=== PATIENT | male | born 1945 | race Caucasian/White ===

== ENCOUNTER 2019-01-05 22:02 | Inpatient (IN) | payer MEDICARE, OTHER ==
[2019-01-05] MEDS ORDERED: ACETAMINOPHEN TAB 500 MG TAB PO STA (22:20)
[2019-01-05] MEDS ORDERED: SODIUM CHLORIDE 0.9% 1,000 ML IV STA ×2 (22:20)
[2019-01-05] MEDS ORDERED: SODIUM CHLORIDE 0.9% 500 ML 500 ML IV STA (22:20)
[2019-01-05] MEDS ORDERED: IBUPROFEN 600 MG TAB PO STA (22:20)
--- NOTE | 2019-01-05 22:31 | ED ---
Weakness HPI - General Chief complaint: Weakness Stated complaint: Weakness,fever Time Seen by Provider: 01/05/19 22:10 Source: patient, family, EMS, RN notes reviewed, old records reviewed Mode of arrival: EMS Limitations: no limitations - History of Present Illness Initial comments: This is a 73-year-old male the ER for evaluation patient resents today for evaluation of severe weakness and fever. Significant left upper extremity pain. Weakness. Patient is diagnosis of CVA, scheduled for bone marrow biopsy, has history of leukemia. Patient's severely weak unable to give history history obtained from family at bedside and EMS patient did vomit upon EMS arrival, has not been feeling as well himself all day he did receive a pneumonia vaccine in his left shoulder earlier in the day MD Complaint: generalized weakness -: hour(s) Location: generalized, LUE Severity scale (1-10): 7 Consistency: constant Improves with: none Context: new medication, recent illness Associated Symptoms: fever/chills, loss of appetite, nausea/vomiting, shortness of breath - Related Data Home Medications Medication Instructions Recorded Confirmed Albuterol Inhaler [Ventolin Hfa 2 puff INHALATION RT-Q6H PRN 08/04/15 01/05/19 Inhaler] Albuterol Nebulized [Ventolin 2.5 mg INHALATION RT-TID 08/04/15 01/05/19 Nebulized] LORazepam [Lorazepam] 1 mg PO TID 09/09/15 01/05/19 Citalopram Hydrobromide 30 mg PO DAILY 08/05/17 01/05/19 [Citalopram HBr] Acyclovir [Zovirax] 800 mg PO BID 01/05/19 01/05/19 Atorvastatin [Lipitor] 40 mg PO DAILY 01/05/19 01/05/19 Gabapentin [Neurontin] 400 mg PO TID 01/05/19 01/05/19 Hydrocodone/Acetaminophen [[place] 1 tab PO TID PRN 01/05/19 01/05/19 7.5-325] Mg Plus Protein Tab 1 tab PO DAILY 01/05/19 01/05/19 Montelukast [Singulair] 10 mg PO HS 01/05/19 01/05/19 Ondansetron HCl [Zofran] 4 mg PO BID PRN 01/05/19 01/05/19 Tacrolimus [Prograf] 0.5 mg PO BID 01/05/19 01/05/19 Venlafaxine HCl ER [Effexor Xr] 75 mg PO DAILY 01/05/19 01/05/19 Allergies Allergy/AdvReac Type Severity Reaction Status Date / Time No Known Allergies Allergy Verified 01/05/19 22:39 Review of Systems ROS Statement: Those systems with pertinent positive or pertinent negative responses have been documented in the HPI. ROS Other: All systems not noted in ROS Statement are negative. Past Medical History Past Medical History: Cancer, COPD, Hyperlipidemia, Hypertension, Renal Disease Additional Past Medical History / Comment(s): sciatica, CLL-SLL, AML-bone marrow transplant 2017,. Skin cancer, stage 3 kidney disease, low platelets, RLS, aortic aneurysm-drTopher monitoring History of Any Multi-Drug Resistant Organisms: None Reported Past Surgical History: No Surgical Hx Reported Additional Past Surgical History / Comment(s): skin grafts to remove skin cancer-part of left ear gone, colonoscopy, bone marrow biopsies Past Anesthesia/Blood Transfusion Reactions: No Reported Reaction Past Psychological History: Depression Smoking Status: Former smoker - Past Family History Mother Family Medical History: Diabetes Mellitus Father Family Medical History: Cancer General Exam - General Exam Comments Initial Comments: Significant swelling of left upper extremity or patient received vaccine earlier today no erythema, whole body is warm Limitations: no limitations General appearance: alert, in no apparent distress Head exam: Present: atraumatic, normocephalic, normal inspection Eye exam: Present: normal appearance, PERRL, EOMI. Absent: scleral icterus, conjunctival injection, periorbital swelling ENT exam: Present: normal exam, mucous membranes moist Neck exam: Present: normal inspection. Absent: tenderness, meningismus, lymphadenopathy Respiratory exam: Present: normal lung sounds bilaterally. Absent: respiratory distress, wheezes, rales, rhonchi, stridor Cardiovascular Exam: Present: regular rate, normal rhythm, normal heart sounds. Absent: systolic murmur, diastolic murmur, rubs, gallop, clicks GI/Abdominal exam: Present: soft, normal bowel sounds. Absent: distended, tenderness, guarding, rebound, rigid Extremities exam: Present: normal inspection, full ROM, normal capillary refill. Absent: tenderness, pedal edema, joint swelling, calf tenderness Back exam: Present: normal inspection Neurological exam: Present: alert, oriented X3, CN II-XII intact Psychiatric exam: Present: normal affect, normal mood Skin exam: Present: warm, dry, intact, normal color. Absent: rash Course Vital Signs 01/05/19 01/05/19 01/06/19 22:09 23:49 00:00 Temperature 100.2 F H Pulse Rate 89 86 88 Respiratory 20 Rate Blood Pressure 137/84 O2 Sat by Pulse 92 L Oximetry 01/06/19 01/06/19 00:01 00:11 Temperature Pulse Rate 88 89 Respiratory Rate Blood Pressure O2 Sat by Pulse Oximetry - Reevaluation(s) Reevaluation #1: 01/05/19 22:31 Record is reviewed Reevaluation #2: 01/06/19 00:18 Patient is feeling much improved after IV hydration and fever control here in t ER EKG Findings - EKG Comments: EKG Findings:: EKG shows sinus rhythm rate of 86, ME 210, QRS 80, QTC 428 Medical Decision Making - Medical Decision Making 73 male the ER for evaluation. Patient does say for evaluation of fever possibly secondary to recent pneumonia vaccination. No abscess noted in left upper extremity chest x-rays negative, patient will be admitted for broad- spectrum antibiotics secondary to leukopenia - Lab Data Result diagrams: 01/05/19 22:50 01/05/19 22:50 Lab Results 01/05/19 01/05/19 01/05/19 Range/Units 22:50 22:50 22:50 WBC 2.1 L (3.8-10.6) k/uL RBC 3.43 L (4.30-5.90) m/uL Hgb 12.6 L (13.0-17.5) gm/dL Hct 36.3 L (39.0-53.0) % MCV 106.1 H (80.0-100.0) fL MCH 36.7 H (25.0-35.0) pg MCHC 34.6 (31.0-37.0) g/dL RDW 16.2 H (11.5-15.5) % Anisocytosis Slight Macrocytosis Moderate PT (9.0-12.0) sec INR (<1.2) APTT (22.0-30.0) sec Sodium 138 (137-145) mmol/L Potassium 4.4 (3.5-5.1) mmol/L Chloride 107 (98-107) mmol/L Carbon Dioxide 24 (22-30) mmol/L Anion Gap 7 mmol/L BUN 21 H (9-20) mg/dL Creatinine 1.00 (0.66-1.25) mg/dL Est GFR (CKD-EPI)AfAm 85 (>60 ml/min/1.73 sqM) Est GFR (CKD-EPI)NonAf 74 (>60 ml/min/1.73 sqM) Glucose 121 H (74-99) mg/dL Plasma Lactic Acid Kaden 1.0 (0.7-2.0) mmol/L Calcium 7.9 L (8.4-10.2) mg/dL Phosphorus 2.3 L (2.5-4.5) mg/dL Magnesium 1.6 (1.6-2.3) mg/dL Total Bilirubin 1.6 H (0.2-1.3) mg/dL AST 42 (17-59) U/L ALT 25 (21-72) U/L Alkaline Phosphatase 112 (38-126) U/L Creatine Kinase 45 L (55-170) U/L Troponin I (0.000-0.034) ng/mL NT-Pro-B Natriuret Pep pg/mL Total Protein 8.5 H (6.3-8.2) g/dL Albumin 3.9 (3.5-5.0) g/dL 01/05/19 01/05/19 01/05/19 Range/Units 22:50 22:50 22:50 WBC (3.8-10.6) k/uL RBC (4.30-5.90) m/uL Hgb (13.0-17.5) gm/dL Hct (39.0-53.0) % MCV (80.0-100.0) fL MCH (25.0-35.0) pg MCHC (31.0-37.0) g/dL RDW (11.5-15.5) % Anisocytosis Macrocytosis PT 11.7 (9.0-12.0) sec INR 1.1 (<1.2) APTT 29.5 (22.0-30.0) sec Sodium (137-145) mmol/L Potassium (3.5-5.1) mmol/L Chloride (98-107) mmol/L Carbon Dioxide (22-30) mmol/L Anion Gap mmol/L BUN (9-20) mg/dL Creatinine (0.66-1.25) mg/dL Est GFR (CKD-EPI)AfAm (>60 ml/min/1.73 sqM) Est GFR (CKD-EPI)NonAf (>60 ml/min/1.73 sqM) Glucose (74-99) mg/dL Plasma Lactic Acid Kaden (0.7-2.0) mmol/L Calcium (8.4-10.2) mg/dL Phosphorus (2.5-4.5) mg/dL Magnesium (1.6-2.3) mg/dL Total Bilirubin (0.2-1.3) mg/dL AST (17-59) U/L ALT (21-72) U/L Alkaline Phosphatase (38-126) U/L Creatine Kinase (55-170) U/L Troponin I <0.012 (0.000-0.034) ng/mL NT-Pro-B Natriuret Pep 564 pg/mL Total Protein (6.3-8.2) g/dL Albumin (3.5-5.0) g/dL - Radiology Data Radiology results: report reviewed (Chest x-ray and ultrasound of left arm is negative for significant acute disease, no abscess noted on ultrasound), image reviewed Disposition Clinical Impression: Acute renal failure, Chronic lymphocytic leukemia, Dehydration, Fever Disposition: ADMITTED IP TO THIS HOSP Condition: Good Is patient prescribed a controlled substance at d/c from ED?: No Referrals: Wilian Sequeira MD [Primary Care Provider] - 1-2 days
[2019-01-05] MEDS ORDERED: IPRATROPIUM-ALBUTEROL 3 ML NEB INHALATION STA (22:51)
[2019-01-05 23:03] LABS: INR 1.1 (<1.2); Partial Thromboplastin Time 29.5 sec (22.0-30.0); Prothrombin Time 11.7 sec (9.0-12.0)
[2019-01-05 23:08] LABS: Anisocytosis Slight; HCT 36.3 % (39.0-53.0); HGB 12.6 gm/dL (13.0-17.5); MCH 36.7 pg (25.0-35.0); MCHC 34.6 g/dL (31.0-37.0); MCV 106.1 fL (80.0-100.0); Macrocytosis Moderate; Mean Platelet Volume 7.7; RBC 3.43 m/uL (4.30-5.90); RDW 16.2 % (11.5-15.5); WBC 2.1 k/uL (3.8-10.6)
[2019-01-05 23:09] LABS: Albumin 3.9 g/dL (3.5-5.0); Calcium 7.9 mg/dL (8.4-10.2); Magnesium 1.6 mg/dL (1.6-2.3); Phosphorus 2.3 mg/dL (2.5-4.5); Potassium 4.4 mmol/L (3.5-5.1); Total Bilirubin 1.6 mg/dL (0.2-1.3); Total Protein 8.5 g/dL (6.3-8.2)
--- NOTE | 2019-01-05 23:23 | XR ---
EXAMINATION TYPE: XR chest 2V DATE OF EXAM: 01/05/2019 COMPARISON: 09/08/1915 HISTORY: Fever and weakness TECHNIQUE: Frontal and lateral views of the chest are obtained. FINDINGS: Heart is normal. Lungs are clear of consolidation. Thoracic aorta is atheromatous. There i s no pleural effusion. Bony thorax is intact. IMPRESSION: No active cardiopulmonary disease. No change. There is probably some COPD.
--- NOTE | 2019-01-05 23:29 | US ---
EXAMINATION TYPE: US extremity nonvasc mass LT DATE OF EXAM: 01/05/2019 COMPARISON: NONE CLINICAL HISTORY: abscess. Abscess per order. Pain, swelling, redness x couple hours at area where pa tient received vaccination upper left arm. Scanned area of concern upper left arm where patient received vaccination today. Limited due to edema . ?Possible indistinct hyperechoic/mixed area seen vs normal tissue? IMPRESSION: There is no evidence of hematoma or abscess. A phlegmon is possible. Margins are indisti nct.
[2019-01-06] MEDS ORDERED: PNEUMONIA PROTOCOL UTILIZED 1 EACH MISC PO PRN (00:18)
[2019-01-06] MEDS ORDERED: PIPERACILLIN-TAZOBACTAM 3.375 GM in SODIUM CHLORIDE 0.9% 100 ML IVPB STA (00:18)
[2019-01-06 00:27] LABS: Band Neutrophils % 9 %; Eosinophils # (M) 0.04 k/uL (0-0.7); Lymphocytes # (M) 1.26 k/uL (1.0-4.8); Monocytes # (M) 0.04 k/uL (0-1.0); Neutrophils % (M) 27 %; Nucleated Red Blood Cells 0 /100 WBC (0-0); Total Cells Counted 100
[2019-01-06 00:28] LABS: Polychromasia Present
[2019-01-06 00:30] LABS: Platelet Count 43 k/uL (150-450)
[2019-01-06 00:56] LABS: Appearance,Urine Clear (Clear); Bacteria,Urine Rare /hpf; Bilirubin,Urine Negative (Negative); Blood,Urine Moderate (Negative); Color,Urine Yellow; Glucose,Urine (UA) Negative (Negative); Hyaline Casts,Urine 1 /lpf (0-2); Ketones,Urine Negative (Negative); Leukocyte Esterase,Urine Negative (Negative); Mucus,Urine Rare /hpf; Nitrite,Urine Negative (Negative); PH, Urine 5.5 (5.0-8.0); Protein,Urine Trace (Negative); RBC,Urine 31 /hpf (0-5); Specific Gravity,Urine 1.016 (1.001-1.035); Squamous Epithelial Cell,Urine <1 /hpf (0-4); Urobilinogen,Urine <2.0 mg/dL (<2.0); WBC,Urine 2 /hpf (0-5)
[2019-01-06] MEDS ORDERED: ACETAMINOPHEN TAB 325 MG TAB PO PRN (01:24)
[2019-01-06 02:36] VITALS: BMI 20.9
[2019-01-06] MEDS ORDERED: SODIUM CHLORIDE 0.9% 1,000 ML IV ONE ×2 (03:19→06:28)
[2019-01-06] MEDS: SODIUM CHLORIDE 0.9% 1,000 ML IV SCH ×3 (03:35→22:41)
[2019-01-06] MEDS ORDERED: HYDROcodone/APAP 7.5-325MG 1 EACH TAB PO PRN (08:27)
[2019-01-06] MEDS ORDERED: ALBUTEROL NEBULIZED 2.5 MG/3 ML INHALATION PRN (08:27)
[2019-01-06] MEDS ORDERED: ONDANSETRON 4 MG TAB PO PRN (08:27)
--- NOTE | 2019-01-06 08:27 | P.HPIM ---
History of Present Illness H&P Date: 01/06/19 Chief Complaint: Hypertension with left shoulder pain. This is a history of physical 73-year-old white male with known history of leukemia who was recently treated yesterday and after getting a pneumonia vaccination had significant weakness. Evaluation in emergency room did show hypotension. The patient is now admitted for this. Left shoulder subcutaneous reaction was occurring and he still has significant left shoulder pain. No significant nausea, vomiting or diarrhea. No fever stated. The patient seems to tolerate diet. He has not underlying history of COPD. Review of Systems Constitutional: Reports weakness, Denies chills, Denies fever Eyes: denies blurred vision, denies pain Ears, nose, mouth and throat: Denies headache, Denies sore throat Cardiovascular: Denies chest pain, Denies shortness of breath Respiratory: Denies cough Gastrointestinal: Denies abdominal pain, Denies diarrhea, Denies nausea, Denies vomiting Musculoskeletal: Denies myalgias Past Medical History Past Medical History: Cancer, COPD, Hyperlipidemia, Hypertension, Renal Disease Additional Past Medical History / Comment(s): sciatica, CLL-SLL, AML-bone marrow transplant 2017,. 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 Smoking Status: Former smoker Past Alcohol Use History: None Reported Additional Past Alcohol Use History / Comment(s): started smoking at age 14, 1 ppd, quit smoking 2017 Past Drug Use History: None Reported - Past Family History Mother Family Medical History: Diabetes Mellitus Father Family Medical History: Cancer Brother(s) Family Medical History: Cancer Medications and Allergies Home Medications Medication Instructions Recorded Confirmed Type Albuterol Inhaler [Ventolin Hfa 2 puff INHALATION RT-Q6H PRN 08/04/15 01/05/19 History Inhaler] Albuterol Nebulized [Ventolin 2.5 mg INHALATION RT-TID 08/04/15 01/05/19 History Nebulized] LORazepam [Lorazepam] 1 mg PO TID 09/09/15 01/05/19 History Citalopram Hydrobromide 30 mg PO DAILY 08/05/17 01/05/19 History [Citalopram HBr] Acyclovir [Zovirax] 800 mg PO BID 01/05/19 01/05/19 History Atorvastatin [Lipitor] 40 mg PO DAILY 01/05/19 01/05/19 History Gabapentin [Neurontin] 400 mg PO TID 01/05/19 01/05/19 History Hydrocodone/Acetaminophen [[place] 1 tab PO TID PRN 01/05/19 01/05/19 History 7.5-325] Mg Plus Protein Tab 1 tab PO DAILY 01/05/19 01/05/19 History Montelukast [Singulair] 10 mg PO HS 01/05/19 01/05/19 History Ondansetron HCl [Zofran] 4 mg PO BID PRN 01/05/19 01/05/19 History Tacrolimus [Prograf] 0.5 mg PO BID 01/05/19 01/05/19 History Venlafaxine HCl ER [Effexor Xr] 75 mg PO DAILY 01/05/19 01/05/19 History Allergies Allergy/AdvReac Type Severity Reaction Status Date / Time No Known Allergies Allergy Verified 01/05/19 22:39 Physical Exam Vitals: Vital Signs Temp Pulse Pulse Resp BP BP Pulse Ox 01/06/19 06:15 97.8 F 76 20 85/52 92 L 01/06/19 05:21 95/58 01/06/19 04:48 89/53 01/06/19 04:01 76 89/53 01/06/19 03:16 98.6 F 76 18 77/43 90 L 01/06/19 02:21 98.2 F 83 16 84/49 91 L 01/06/19 01:45 99.0 F 87 20 91/53 94 L 01/06/19 00:26 101.0 F H 87 20 113/66 94 L 01/06/19 00:20 20 01/06/19 00:11 89 01/06/19 00:01 88 01/06/19 00:00 88 01/05/19 23:49 86 01/05/19 22:09 100.2 F H 89 20 137/84 92 L Intake and Output 01/05/19 01/06/19 01/06/19 22:59 06:59 14:59 Intake Total 2300 Balance 2300 Intake: Intake, IV Titration 2300 Amount Sodium Chloride 0.9% 1, 300 000 ml @ 100 mls/hr IV . Q10H DOMINICK Rx#:[id number] Sodium Chloride 0.9% 1, 2000 000 ml @ 999 mls/hr IV . Q1H1M STA Rx#:[id number] Other: Voiding Method Urinal Weight 72.121 kg - Constitutional General appearance: no acute distress - EENT Eyes: EOMI - Neck Neck: no lymphadenopathy - Respiratory Respiratory: bilateral: wheezing - Cardiovascular Rhythm: regular Heart sounds: normal: S1, S2 Abnormal Heart Sounds: no S3 Gallop - Gastrointestinal General gastrointestinal: soft, no tenderness - Integumentary Redness of the left shoulder area at the vaccine site with significant dermal reaction. Integumentary: rash - Neurologic Neurologic: CNII-XII intact Results CBC & Chem 7: 01/05/19 22:50 01/05/19 22:50 Labs: Abnormal Lab Results - Last 24 Hours (Table) 01/05/19 01/05/19 01/06/19 Range/Units 22:50 22:50 00:25 WBC 2.1 L (3.8-10.6) k/uL RBC 3.43 L (4.30-5.90) m/uL Hgb 12.6 L (13.0-17.5) gm/dL Hct 36.3 L (39.0-53.0) % MCV 106.1 H (80.0-100.0) fL MCH 36.7 H (25.0-35.0) pg RDW 16.2 H (11.5-15.5) % Plt Count 43 L (150-450) k/uL Neutrophils # (Manual) 0.70 L (1.3-7.7) k/uL BUN 21 H (9-20) mg/dL Glucose 121 H (74-99) mg/dL Calcium 7.9 L (8.4-10.2) mg/dL Phosphorus 2.3 L (2.5-4.5) mg/dL Total Bilirubin 1.6 H (0.2-1.3) mg/dL Creatine Kinase 45 L (55-170) U/L Total Protein 8.5 H (6.3-8.2) g/dL Urine Protein Trace H (Negative) Urine Blood Moderate H (Negative) Urine RBC 31 H (0-5) /hpf Urine Bacteria Rare H (None) /hpf Urine Mucus Rare H (None) /hpf Thrombosis Risk Factor Assmnt - Choose All That Apply Any of the Below Risk Factors Present?: Yes Each Factor Represents 1 point: Abnormal pulmonary function (COPD) Other Risk Factors: Yes Each Risk Factor Represents 2 Points: Age 61-74 years Thrombosis Risk Factor Assessment Total Risk Factor Score: 3 Thrombosis Risk Factor Assessment Level: Moderate Risk Assessment and Plan (1) Allergic reaction to vaccine Current Visit: Yes Status: Acute Code(s): T80.69XA - OTHER SERUM REACTION DUE TO OTHER SERUM, INITIAL ENCOUNTER SNOMED Code(s): 70158668756239836 (2) Hypotension Current Visit: Yes Status: Acute Code(s): I95.9 - HYPOTENSION, UNSPECIFIED SNOMED Code(s): 77791396 (3) Chronic lymphocytic leukemia Current Visit: Yes Status: Acute Code(s): C91.10 - CHRONIC LYMPHOCYTIC LEUK OF B-CELL TYPE NOT ACHIEVE REMIS SNOMED Code(s): 36541227 (4) Dehydration Current Visit: Yes Status: Acute Code(s): E86.0 - DEHYDRATION SNOMED Code(s): 70816238 Plan: If blood pressure does not hold, consider transfer to ICU for Levothroid. Otherwise, the patient seems quite lucid. Consult pulmonology for assistance. Check CBC CMP and chest x-ray in a.m. Reconcile medications. Otherwise, the patient is full code. Time with Patient: Greater than 30
[2019-01-06] MEDS ORDERED: PROTEIN PO SCH (09:00)
[2019-01-06] MEDS ORDERED: ENOXAPARIN 40 MG/0.4 ML SYRINGE SQ SCH (09:00)
[2019-01-06 09:18] LABS: HCT 29.8 % (39.0-53.0); HGB 10.1 gm/dL (13.0-17.5); MCH 35.8 pg (25.0-35.0); MCHC 33.8 g/dL (31.0-37.0); MCV 105.9 fL (80.0-100.0); Macrocytosis Moderate; Mean Platelet Volume 8.2; RBC 2.82 m/uL (4.30-5.90); RDW 15.1 % (11.5-15.5); WBC 2.1 k/uL (3.8-10.6)
[2019-01-06 09:19] LABS: Platelet Count 41 k/uL (150-450)
[2019-01-06] MEDS: ATORVASTATIN 40 MG TAB PO SCH (09:51)
[2019-01-06] MEDS: CITALOPRAM HYDROBROMIDE 10 MG TAB PO SCH (09:51)
[2019-01-06] MEDS: GABAPENTIN 400 MG CAP PO SCH ×3 (09:51→22:41)
[2019-01-06] MEDS: TACROLIMUS 0.5 MG CAP PO SCH ×2 (09:52→22:42)
[2019-01-06] MEDS: ACYCLOVIR 800 MG TAB PO SCH ×2 (09:52→22:42)
[2019-01-06] MEDS: PIPERACILLIN-TAZOBACTAM 3.375 GM in SODIUM CHLORIDE 0.9% 100 ML IVPB SCH ×3 (09:52→23:50)
[2019-01-06] MEDS: LORazepam 1 MG TAB PO SCH ×3 (10:09→22:42)
[2019-01-06 10:32] LABS: Nucleated Red Blood Cells 0 /100 WBC (0-0)
[2019-01-06 10:38] LABS: Band Neutrophils % 2 %; Basophils # (M) 0.04 k/uL (0-0.2); Lymphocytes # (M) 0.67 k/uL (1.0-4.8); Monocytes # (M) 0.63 k/uL (0-1.0); Neutrophils % (M) 28 %
[2019-01-06 10:40] LABS: Blast Cells # (M) 0.13 k/uL (0); Total Cells Counted 100
[2019-01-06 10:41] LABS: Poikilocytosis (M) Present
[2019-01-06] MEDS: ALBUTEROL NEBULIZED 2.5 MG/3 ML INHALATION SCH ×2 (11:55→19:35)
--- NOTE | 2019-01-06 13:28 | CT ---
EXAMINATION TYPE: CT abdomen wo con DATE OF EXAM: 01/06/2019 COMPARISON: CT 08/16/2015 HISTORY: Rapid onset bruising to left back. Low platelets. Lymphoma CT DLP: 309.9 mGycm Automated exposure control for dose reduction was used. TECHNIQUE: Helical acquisition of images was performed from the lung bases through the top of iliac crest to include entire abdomen. CONTRAST: Performed without Oral Contrast and without IV contrast. FINDINGS: Lack of contrast material can compromise sensitivity of the exam. There are coronary artery calcifications. There is a small hiatal hernia present. LUNG BASES: No significant abnormality is appreciated. LIVER/GB: No significant abnormality is appreciated. PANCREAS: No significant abnormality is seen. SPLEEN: The spleen is enlarged similar to prior exam.. ADRENALS: No significant abnormality is seen. KIDNEYS: Cortical cyst associated with the left kidney lower pole is again noted. There is some perin ephric fluid similar to prior exam. BOWEL: No significant abnormality is seen. LYMPH NODES: No significan abnormality is appreciated. OSSEOUS STRUCTURES: Scoliotic curvature of the visualized spine noted, there is multilevel spondylos is with vacuum disc phenomenon similar to prior exam, there is multilevel foraminal encroachment and likely spinal stenosis. FREE AIR: No Free Air visible ASCITES: None visible. RETROPERITONEAL ADENOPATHY: No Retroperitoneal Adenopathy visible. OTHER: Distal abdominal aorta measures 3.3 cm in AP dimension which may have increased minimally in t he interval, common iliac arteries are ectatic proximally and there is atheromatous change present.. IMPRESSION: NONCONTRAST EXAM. SPLENOMEGALY. INFRARENAL ABDOMINAL AORTIC ECTASIA. Spinal stenosis, degenerative di sc disease, scoliosis.
[2019-01-06 14:44] LABS: INR 1.2 (<1.2); Partial Thromboplastin Time 37.7 sec (22.0-30.0); Prothrombin Time 12.1 sec (9.0-12.0)
--- NOTE | 2019-01-06 17:58 | P.CNPUL ---
History of Present Illness Consult date: 01/06/19 Reason for consult: dyspnea, cough, COPD, hypoxemia Chief complaint: Left arm swelling History of present illness: This is a 73-year-old male well-known to me patient has been having some shortness of breath and wheezing going on last 5 or 6 days he has been seen at an [facility] where he had a pneumonia shot earlier on the day developed severe swelling the right hematoma and edema of the arm presented to ER for evaluation patient resents today for evaluation of severe weakness and fever. Significant left upper extremity pain. Weakness. Patient is diagnosis of CVA, scheduled for bone marrow biopsy, has history of leukemia. Patient's severely weak unable to give history history obtained from family at bedside and EMS patient did vomit upon EMS arrival, has not been feeling as well himself all day he did receive a pneumonia vaccine in his left shoulder earlier in the day, patient noted to have a low-grade temperature of 100.2 with oxygen saturation 92% Review of Systems All systems: negative Past Medical History Past Medical History: Cancer, COPD, Hyperlipidemia, Hypertension, Renal Disease Additional Past Medical History / Comment(s): sciatica, CLL-SLL, AML-bone marrow transplant 2017,. Skin cancer, stage 3 kidney disease, low platelets, RLS, aortic aneurysm-drTopher monitoring History of Any Multi-Drug Resistant Organisms: None Reported Past Surgical History: No Surgical Hx Reported Additional Past Surgical History / Comment(s): skin grafts to remove skin cancer-part of left ear gone, colonoscopy, bone marrow biopsies Past Anesthesia/Blood Transfusion Reactions: No Reported Reaction Past Psychological History: Depression Additional Psychological History / Comment(s): lives with and grand daughter.pt is retired used work in a [employer] shop /[employer]. Smoking Status: Former smoker Past Alcohol Use History: None Reported Additional Past Alcohol Use History / Comment(s): started smoking at age 14, 1 ppd, quit smoking 2017 Past Drug Use History: None Reported - Past Family History Mother Family Medical History: Diabetes Mellitus Father Family Medical History: Cancer Brother(s) Family Medical History: Cancer Medications and Allergies Home Medications Medication Instructions Recorded Confirmed Type Albuterol Inhaler [Ventolin Hfa 2 puff INHALATION RT-Q6H PRN 08/04/15 01/05/19 History Inhaler] Albuterol Nebulized [Ventolin 2.5 mg INHALATION RT-TID 08/04/15 01/05/19 History Nebulized] LORazepam [Lorazepam] 1 mg PO TID 09/09/15 01/05/19 History Citalopram Hydrobromide 30 mg PO DAILY 08/05/17 01/05/19 History [Citalopram HBr] Acyclovir [Zovirax] 800 mg PO BID 01/05/19 01/05/19 History Atorvastatin [Lipitor] 40 mg PO DAILY 01/05/19 01/05/19 History Gabapentin [Neurontin] 400 mg PO TID 01/05/19 01/05/19 History Hydrocodone/Acetaminophen [[place] 1 tab PO TID PRN 01/05/19 01/05/19 History 7.5-325] Mg Plus Protein Tab 1 tab PO DAILY 01/05/19 01/05/19 History Montelukast [Singulair] 10 mg PO HS 01/05/19 01/05/19 History Ondansetron HCl [Zofran] 4 mg PO BID PRN 01/05/19 01/05/19 History Tacrolimus [Prograf] 0.5 mg PO BID 01/05/19 01/05/19 History Venlafaxine HCl ER [Effexor Xr] 75 mg PO DAILY 01/05/19 01/05/19 History Allergies Allergy/AdvReac Type Severity Reaction Status Date / Time No Known Allergies Allergy Verified 01/05/19 22:39 Physical Exam Vitals: Vital Signs Temp Pulse Pulse Resp BP BP Pulse Ox 01/06/19 16:00 90 20 01/06/19 13:07 98.5 F 90 20 97/61 96 01/06/19 12:31 78 20 01/06/19 12:10 80 01/06/19 11:55 76 01/06/19 10:20 78 102/56 01/06/19 08:00 78 20 01/06/19 07:25 77 101/58 01/06/19 06:15 97.8 F 76 20 85/52 92 L 01/06/19 05:21 95/58 01/06/19 04:48 89/53 01/06/19 04:01 76 89/53 01/06/19 03:16 98.6 F 76 18 77/43 90 L 09/18/19 02:21 98.2 F 83 16 84/49 91 L 01/06/19 01:45 99.0 F 87 20 91/53 94 L 01/06/19 00:26 101.0 F H 87 20 113/66 94 L 01/06/19 00:20 20 01/06/19 00:11 89 01/06/19 00:01 88 01/06/19 00:00 88 01/05/19 23:49 86 01/05/19 22:09 100.2 F H 89 20 137/84 92 L Intake and Output 01/06/19 01/06/19 01/06/19 06:59 14:59 22:59 Intake Total 2300 1600 Balance 2300 1600 Intake: Intake, IV Titration 2300 1000 Amount Sodium Chloride 0.9% 1, 300 000 ml @ 100 mls/hr IV . Q10H DOMINICK Rx#:[id number] Sodium Chloride 0.9% 1, 2000 1000 000 ml @ 999 mls/hr IV . Q1H1M STA Rx#:[id number] Oral 600 Other: Voiding Method Urinal Urinal Urinal # Voids 4 4 - Constitutional General appearance: average body habitus, cooperative, disheveled, mild distress - EENT Eyes: anicteric sclerae, EOMI, PERRLA, poor dentition, normal appearance ENT: normal oropharynx Ears: bilateral: normal - Neck Neck: normal ROM Carotids: bilateral: upstroke normal Thyroid: bilateral: normal size - Respiratory Respiratory: bilateral: diminished, wheezing, prolonged expiration, negative: CTA, dullness, rales, rhonchi, prolonged inspiration, other - Cardiovascular Rhythm: regular Heart sounds: normal: S1, S2 - Gastrointestinal General gastrointestinal: normal bowel sounds - Integumentary Integumentary: normal - Neurologic Neurologic: CNII-XII intact - Musculoskeletal Musculoskeletal: gait normal, generalized weakness, strength equal bilaterally - Psychiatric Psychiatric: A&O x's 3, appropriate affect, intact judgment & insight Left upper extremity upper arm noted to have severe erythema and edema and swelling however somewhat improved compared to yesterday Results - Laboratory Findings CBC and BMP: 01/06/19 08:53 01/05/19 22:50 PT/INR, D-dimer PT 12.1 sec (9.0-12.0) H 01/06/19 14:05 INR 1.2 (<1.2) H 01/06/19 14:05 Abnormal lab findings: Abnormal Labs 01/05/19 01/05/19 01/06/19 22:50 22:50 00:25 WBC 2.1 L RBC 3.43 L Hgb 12.6 L Hct 36.3 L MCV 106.1 H MCH 36.7 H RDW 16.2 H Plt Count 43 L Blast Cells % Neutrophils # (Manual) 0.70 L Lymphocytes # (Manual) Blast Cells # (Man) PT INR APTT BUN 21 H Glucose 121 H Calcium 7.9 L Phosphorus 2.3 L Total Bilirubin 1.6 H Creatine Kinase 45 L Total Protein 8.5 H Urine Protein Trace H Urine Blood Moderate H Urine RBC 31 H Urine Bacteria Rare H Urine Mucus Rare H 01/06/19 01/06/19 08:53 14:05 WBC 2.1 L RBC 2.82 L Hgb 10.1 L Hct 29.8 L MCV 105.9 H MCH 35.8 H RDW Plt Count 41 L Blast Cells % 6 H* Neutrophils # (Manual) 0.60 L Lymphocytes # (Manual) 0.67 L Blast Cells # (Man) 0.13 H PT 12.1 H INR 1.2 H APTT 37.7 H BUN Glucose Calcium Phosphorus Total Bilirubin Creatine Kinase Total Protein Urine Protein Urine Blood Urine RBC Urine Bacteria Urine Mucus - Diagnostic Findings Chest x-ray: report reviewed, image reviewed (Chest x-ray suggestive of COPD- like changes, no acute infiltrate identified, computed tomography scan of the abdomen and pelvis fairly unremarkable except for splenomegaly likely related to history of lymphoma, ultrasound of left upper extremity shows some swelling but negative for any abscess or hematoma) Assessment and Plan Assessment: Acute COPD exacerbation Tracheobronchitis Low-grade fever Postvaccine left arm swelling History of chronic lymphocytic leukemia Dehydration Plan: Gentle rehydration Bronchodilator Pulmicort IV steroids IV antibiotics can be switched to oral like Augmentin next 24 hours Further recommendations pending plan of care as per clinical response of the patient Time with Patient: Greater than 30
[2019-01-06] MEDS: BUDESONIDE 0.5 MG/2 ML NEBU INHALATION SCH (19:35)
[2019-01-06] MEDS ORDERED: MONTELUKAST 10 MG TAB PO SCH (21:00)
[2019-01-06] MEDS: methylPREDNISolone SOD SUCCI 40 MG/ML 1 ML VIAL IV SCH (22:42)
[2019-01-07 05:47] VITALS: BP 118/57; RESP 16; TEMP 98
[2019-01-07] MEDS: SODIUM CHLORIDE 0.9% 1,000 ML IV SCH (05:49)
[2019-01-07 07:28] LABS: HCT 28.6 % (39.0-53.0); HGB 10.2 gm/dL (13.0-17.5); MCH 37.8 pg (25.0-35.0); MCHC 35.6 g/dL (31.0-37.0); MCV 106.1 fL (80.0-100.0); Macrocytosis Moderate; Mean Platelet Volume 7.6; RBC 2.69 m/uL (4.30-5.90); RDW 15.1 % (11.5-15.5); WBC 1.8 k/uL (3.8-10.6)
[2019-01-07 07:31] LABS: Platelet Count 38 k/uL (150-450)
--- NOTE | 2019-01-07 08:13 | XR ---
EXAMINATION TYPE: XR chest 2V DATE OF EXAM: 01/07/2019 COMPARISON: 01/05/2019 HISTORY: 73-year-old male pneumonia TECHNIQUE: Frontal and lateral views FINDINGS: Heart normal size. Aorta and pulmonary vasculature within normal limits. Central peribronchial cuffin g and some strandy atelectasis of the right base. Mild hyperinflation. IMPRESSION: COPD. Peribronchial cuffing could represent bronchitis or asthma. No definite acute process otherwise seen.
[2019-01-07] MEDS: ALBUTEROL NEBULIZED 2.5 MG/3 ML INHALATION SCH ×2 (08:33→11:52)
[2019-01-07] MEDS: BUDESONIDE 0.5 MG/2 ML NEBU INHALATION SCH (08:33)
--- NOTE | 2019-01-07 09:11 | P.DS ---
Providers Date of admission: 01/06/19 00:18 Attending physician: Wilian Sequeira Consults: 01/06/19 08:08 Consult Physician Urgent Consulting Provider: Rashaun Carrero Consult Reason/Comments: COPD, hypotension Do you want consulting provider notified?: Yes Consult Physician Urgent Consulting Provider: Kyle Camargo Consult Reason/Comments: CLL, leukocytosis, anemia, fever, hypotension Do you want consulting provider notified?: Yes Primary care physician: Wilian Sequeira - Discharge Diagnosis(es) (1) Allergic reaction to vaccine Current Visit: Yes Status: Acute (2) Hypotension Current Visit: Yes Status: Acute (3) Chronic lymphocytic leukemia Current Visit: Yes Status: Acute (4) Dehydration Current Visit: Yes Status: Acute Hospital Course: This is a discharge summasentially admitte post vaccine reaction. 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 He is prone to having odd reactions and he has been informed that this could occur. Patient Condition at Discharge: Good Plan - Discharge Summary Discharge Rx Participant: No New Discharge Prescriptions: New Amoxicillin/Potassium Clav [Augmentin 875-125 Tablet] 1 tab PO Q12HR #14 tab Continue Albuterol Inhaler [Ventolin Hfa Inhaler] 2 puff INHALATION RT-Q6H PRN PRN Reason: Shortness Of Breath Albuterol Nebulized [Ventolin Nebulized] 2.5 mg INHALATION RT-TID LORazepam [Lorazepam] 1 mg PO TID Citalopram Hydrobromide [Citalopram HBr] 30 mg PO DAILY Montelukast [Singulair] 10 mg PO HS Gabapentin [Neurontin] 400 mg PO TID Atorvastatin [Lipitor] 40 mg PO DAILY Venlafaxine HCl ER [Effexor XR] 75 mg PO DAILY Tacrolimus [Prograf] 0.5 mg PO BID Ondansetron HCl [Zofran] 4 mg PO BID PRN PRN Reason: Nausea Mg Plus Protein Tab 1 tab PO DAILY Hydrocodone/Acetaminophen [[place] 7.5-325] 1 tab PO TID PRN PRN Reason: Pain Acyclovir [Zovirax] 800 mg PO BID Discharge Medication List Albuterol Inhaler [Ventolin Hfa Inhaler] 2 puff INHALATION RT-Q6H PRN 08/04/15 [History] Albuterol Nebulized [Ventolin Nebulized] 2.5 mg INHALATION RT-TID 08/04/15 [History] LORazepam [Lorazepam] 1 mg PO TID 09/09/15 [History] Citalopram Hydrobromide [Citalopram HBr] 30 mg PO DAILY 08/05/17 [History] Acyclovir [Zovirax] 800 mg PO BID 01/05/19 [History] Atorvastatin [Lipitor] 40 mg PO DAILY 01/05/19 [History] Gabapentin [Neurontin] 400 mg PO TID 01/05/19 [History] Hydrocodone/Acetaminophen [[place] 7.5-325] 1 tab PO TID PRN 01/05/19 [History] Mg Plus Protein Tab 1 tab PO DAILY 01/05/19 [History] Montelukast [Singulair] 10 mg PO HS 01/05/19 [History] Ondansetron HCl [Zofran] 4 mg PO BID PRN 01/05/19 [History] Tacrolimus [Prograf] 0.5 mg PO BID 01/05/19 [History] Venlafaxine HCl ER [Effexor XR] 75 mg PO DAILY 01/05/19 [History] Amoxicillin/Potassium Clav [Augmentin 875-125 Tablet] 1 tab PO Q12HR #14 tab 01/07/19 [Rx] Follow up Appointment(s)/Referral(s): Wilian Sequeira MD [Primary Care Provider] - 1-2 days Rashaun Carrero MD [STAFF PHYSICIAN] - 1 Week
[2019-01-07] MEDS: LORazepam 1 MG TAB PO SCH (09:31)
[2019-01-07] MEDS: CITALOPRAM HYDROBROMIDE 10 MG TAB PO SCH (09:31)
[2019-01-07] MEDS: ATORVASTATIN 40 MG TAB PO SCH (09:31)
[2019-01-07] MEDS: TACROLIMUS 0.5 MG CAP PO SCH (09:31)
[2019-01-07] MEDS: GABAPENTIN 400 MG CAP PO SCH (09:31)
[2019-01-07] MEDS: PIPERACILLIN-TAZOBACTAM 3.375 GM in SODIUM CHLORIDE 0.9% 100 ML IVPB SCH (09:31)
[2019-01-07] MEDS: methylPREDNISolone SOD SUCCI 40 MG/ML 1 ML VIAL IV SCH (09:31)
[2019-01-07] MEDS: ACYCLOVIR 800 MG TAB PO SCH (09:31)
--- NOTE | 2019-01-07 09:53 | P.PN ---
Subjective Progress Note Date: 01/07/19 Principal diagnosis: fever, Hx leukemia/lymphoma In f/u pt feels ok, denies fever, nausea, SOB, cough, bowel or bladder c/o. Objective - Vital Signs Vital signs: Vital Signs Temp 98.0 F 01/07/19 05:00 Pulse 80 01/07/19 08:41 Resp 16 01/07/19 05:00 BP 118/57 01/07/19 05:00 Pulse Ox 96 01/07/19 05:00 Intake & Output 01/06/19 01/07/19 01/07/19 18:59 06:59 18:59 Intake Total 19590 Balance 19590 Intake: Intake, IV Titration 1000 1200 Amount Piperacillin-Tazobactam 3 200 .375 gm In Sodium Chloride 0.9% 100 ml @ 25 mls/hr IVPB Q8HR [facility]INICK Rx# :[id number] Sodium Chloride 0.9% 1, 1000 000 ml @ 100 mls/hr IV . Q10H DOMINICK Rx#:[id number] Sodium Chloride 0.9% 1, 1000 000 ml @ 999 mls/hr IV . Q1H1M STA Rx#:[id number] Oral 960 1050 Other: Voiding Method Urinal Urinal # Voids 4 2 # Bowel Movements 1 - Constitutional General appearance: Present: cooperative, no acute distress, thin - EENT Eyes: Present: anicteric sclerae, EOMI ENT: Present: hearing grossly normal - Respiratory Respiratory: bilateral: CTA - Cardiovascular Heart sounds: normal: S1, S2 - Peripheral edema leg Peripheral Edema: bilateral: None - Gastrointestinal General gastrointestinal: Present: normal bowel sounds, soft - Integumentary Integumentary Comment(s): thin skin on extremities, multiple scabs and bruises (pt states from dog jumping on him). LUE redness, no longer indurated, skin is softening - Neurologic Neurologic: Present: CNII-XII intact - Musculoskeletal Musculoskeletal: Present: strength equal bilaterally - Psychiatric Psychiatric: Present: A&O x's 3, appropriate affect, intact judgment & insight - Labs CBC & Chem 7: 01/07/19 06:56 01/05/19 22:50 Labs: Abnormal Lab Results - Last 24 Hours (Table) 01/06/19 01/06/19 01/07/19 Range/Units 08:53 14:05 06:56 WBC 1.8 L (3.8-10.6) k/uL RBC 2.69 L (4.30-5.90) m/uL Hgb 10.2 L (13.0-17.5) gm/dL Hct 28.6 L (39.0-53.0) % MCV 106.1 H (80.0-100.0) fL MCH 37.8 H (25.0-35.0) pg Plt Count 41 L 38 L (150-450) k/uL Blast Cells % 6 H* % Neutrophils # (Manual) 0.60 L (1.3-7.7) k/uL Lymphocytes # (Manual) 0.67 L (1.0-4.8) k/uL Blast Cells # (Man) 0.13 H (0) k/uL PT 12.1 H (9.0-12.0) sec INR 1.2 H (<1.2) APTT 37.7 H (22.0-30.0) sec Microbiology - Last 24 Hours (Table) 01/06/19 13:30 Gram Stain - Preliminary Sputum Sputum Culture - Preliminary 01/05/19 22:50 Blood Culture - Preliminary Blood No Growth after 24 hours - Imaging and Cardiology CT scan - abdomen: report reviewed Assessment and Plan (1) Pancytopenia with fever Narrative/Plan: Dr. Camargo and Dr. Sequeira discussed case. [place] that pt had reaction to vaccine and possible underlying viral syndrome. Fever pattern has abated. Cultures negative thus far. Pt will be discharged in abx. CBC stable, not requiring transfusion at this time. Pt instructed on fever monitoring, bleeding precautions, no ASA, NSAIDs, ibuprofen or anticoagulants. He verbalized understanding. Pt is scheduled for bone marrow biopsy next week at [facility], must keep that appt. Current Visit: Yes Status: Acute Priority: High Code(s): D61.818 - OTHER PANCYTOPENIA; R50.81 - FEVER PRESENTING WITH CONDITIONS CLASSIFIED ELSEWHERE SNOMED Code(s): 005678284 (2) Fever Current Visit: Yes Status: Resolved Priority: High Code(s): R50.9 - FEVER, UNSPECIFIED SNOMED Code(s): 825394361 Plan: Doctor attests: I performed a history and physical examination of this patient, developed impression and plan of care. Discussed with dictator. I agree with dictators note, documented as a scribe.
[2019-01-07 12:01] VITALS: PULSE 84
--- NOTE | 2019-01-07 15:22 | P.PN ---
Subjective Progress Note Date: 01/07/19 Principal diagnosis: Acute COPD exacerbation Tracheobronchitis Low-grade fever Postvaccine left arm swelling History of chronic lymphocytic leukemia Dehydration 01/07/2019, patient seen eval examined during the rounds labs reviewed medications reviewed his shortness of breath significantly improved compared to yesterday with less cough congestion is present, swelling in the left upper extremity has improved This is a 73-year-old male well-known to me patient has been having some shortness of breath and wheezing going on last 5 or 6 days he has been seen at [facility] where he had a pneumonia shot earlier on the day developed severe swelling the right hematoma and edema of the arm presented to ER for evaluation patient resents today for evaluation of severe weakness and fever. Significant left upper extremity pain. Weakness. Patient is diagnosis of CVA, scheduled for bone marrow biopsy, has history of leukemia. Patient's severely weak unable to give history history obtained from family at bedside and EMS patient did vomit upon EMS arrival, has not been feeling as well himself all day he did receive a pneumonia vaccine in his left shoulder earlier in the day, patient noted to have a low-grade temperature of 100.2 with oxygen saturation 92% Objective - Vital Signs Vital signs: Vital Signs Temp 98.0 F 01/07/19 05:00 Pulse 84 01/07/19 12:00 Resp 16 01/07/19 05:00 BP 118/57 01/07/19 05:00 Pulse Ox 92 L 01/07/19 12:35 Intake & Output 01/06/19 01/07/19 01/07/19 18:59 06:59 18:59 Intake Total 1960 2250 300 Balance 1959 2250 300 Intake: Intake, IV Titration 1000 1200 300 Amount Piperacillin-Tazobactam 3 200 100 .375 gm In Sodium Chloride 0.9% 100 ml @ 25 mls/hr IVPB Q8HR [facility]INICK Rx# :[id number] Sodium Chloride 0.9% 1, 1000 200 000 ml @ 100 mls/hr IV . Q10H DOMINICK Rx#:[id number] Sodium Chloride 0.9% 1, 1000 000 ml @ 999 mls/hr IV . Q1H1M STA Rx#:[id number] Oral 960 1050 Other: Voiding Method Urinal Urinal # Voids 4 2 # Bowel Movements 1 - Exam - Constitutional General appearance: average body habitus, cooperative, disheveled, mild distress - EENT Eyes: anicteric sclerae, EOMI, PERRLA, poor dentition, normal appearance ENT: normal oropharynx Ears: bilateral: normal - Neck Neck: normal ROM Carotids: bilateral: upstroke normal Thyroid: bilateral: normal size - Respiratory Respiratory: bilateral: diminished, wheezing, prolonged expiration, negative: CTA, dullness, rales, rhonchi, prolonged inspiration, other - Cardiovascular Rhythm: regular Heart sounds: normal: S1, S2 - Gastrointestinal General gastrointestinal: normal bowel sounds - Integumentary Integumentary: normal - Neurologic Neurologic: CNII-XII intact - Musculoskeletal Musculoskeletal: gait normal, generalized weakness, strength equal bilaterally - Psychiatric Psychiatric: A&O x's 3, appropriate affect, intact judgment & insight Left upper extremity upper arm noted to have severe erythema and edema and swelling however somewhat improved compared to yesterday - Labs CBC & Chem 7: 01/07/19 06:56 01/05/19 22:50 Labs: Abnormal Lab Results - Last 24 Hours (Table) 01/07/19 Range/Units 06:56 WBC 1.8 L (3.8-10.6) k/uL RBC 2.69 L (4.30-5.90) m/uL Hgb 10.2 L (13.0-17.5) gm/dL Hct 28.6 L (39.0-53.0) % MCV 106.1 H (80.0-100.0) fL MCH 37.8 H (25.0-35.0) pg Plt Count 38 L (150-450) k/uL Microbiology - Last 24 Hours (Table) 01/06/19 13:30 Gram Stain - Preliminary Sputum Sputum Culture - Preliminary 01/05/19 22:50 Blood Culture - Preliminary Blood No Growth after 24 hours Assessment and Plan Assessment: Acute COPD exacerbation Tracheobronchitis Low-grade fever Postvaccine left arm swelling History of chronic lymphocytic leukemia Dehydration Plan: Gentle rehydration Bronchodilator Pulmicort IV steroids can be switched to oral at the time of discharge IV antibiotics can be switched to oral like Augmentin next 24 hours Further recommendations pending plan of care as per clinical response of the patient Time with Patient: Greater than 30
== END 2019-01-07 15:11 | disposition home or self-care (01) | DRG 916 ==
LOC: EC 22:02 → 3NMEDONC 01-06 00:18
PROVIDERS: ADMIT Family Medicine; ATTEND Family Medicine
DX: T80.62XA Other serum reaction due to vaccination, initial encounter (principal); C91.10 Chronic lymphocytic leukemia of B-cell type not having achieved remission; D61.818 Other pancytopenia; N17.9 Acute kidney failure, unspecified; J44.1 Chronic obstructive pulmonary disease with (acute) exacerbation; T88.1XXA Other complications following immunization, not elsewhere classified, initial encounter; R53.1 Weakness; T50.A95A Adverse effect of other bacterial vaccines, initial encounter; E78.5 Hyperlipidemia, unspecified; E86.0 Dehydration; F32.9 Major depressive disorder, single episode, unspecified; G25.81 Restless legs syndrome; R09.02 Hypoxemia; Z79.899 Other long term (current) drug therapy; Z83.3 Family history of diabetes mellitus; Z85.828 Personal history of other malignant neoplasm of skin; Z87.01 Personal history of pneumonia (recurrent); Z87.891 Personal history of nicotine dependence; R22.32 Localized swelling, mass and lump, left upper limb; Z79.891 Long term (current) use of opiate analgesic; N18.3 Chronic kidney disease, stage 3 (moderate); I12.9 Hypertensive chronic kidney disease with stage 1 through stage 4 chronic kidney disease, or unspecified chronic kidney disease
CPT/HCPCS: 36415; 71046; 74150; 80053; 81001; 82550; 83010; 83605; 83615; 83735; 83880; 84100; 84484; 85025; 85027; 85384; 85610; 85730; 87040; 87070; 87077; 87186; 87205; 93005; 94640; 96361; 96365; 99285

== ENCOUNTER → 2019-02-09 | Outpatient (CLI) | payer MEDICARE, OTHER ==
[~2019-02-09] MED LIST: SODIUM CHLORIDE 0.9% 500 ML 500 ML in EMPTY BAG 1 BAG IV PRN
[2019-02-09 12:57] VITALS: PULSE 76
[2019-02-09 14:38] VITALS: RESP 16
[2019-02-09 14:59] VITALS: BP 122/74; TEMP 98.2
== END | disposition home or self-care (01) ==
LOC: PROCWHC3 12:42
PROVIDERS: ATTEND Internal Medicine Hematology & Oncology
DX: C92.00 Acute myeloblastic leukemia, not having achieved remission (principal)
CPT/HCPCS: 36430; P9040; P9035